=== PATIENT | female | born 1970 | race American Indian/Alaskan Native ===

== ENCOUNTER 2020-01-08 21:07 | Emergency (ER) | payer BC ==
--- NOTE | 2020-01-08 21:40 | Emergency Department Report ---
Blank Doc - Documentation Documentation: 49-year-old female that presents with cough, SOB, and body aches. Taken tylenol prior to ED visit. tachycardia. This initial assessment/diagnostic orders/clinical plan/treatment(s) is/are subject to change based on patient's health status, clinical progression and re-assessment by fellow clinical providers in the ED. Further treatment and workup at subsequent clinical providers discretion. Patient/guardians urged not to elope from the ED as their condition may be serious if not clinically assessed and managed. Initial orders include: 1- Patient sent to [facility] for further evaluation and treatment 2- CXR-R/O PNA w/ possible COVID
--- NOTE | 2020-01-08 22:15 | XRay Report ---
CHEST 2 VIEWS INDICATION / CLINICAL INFORMATION: cough. COMPARISON: None available. FINDINGS: SUPPORT DEVICES: None. HEART / MEDIASTINUM: No significant abnormality. LUNGS / PLEURA: No significant pulmonary or pleural abnormality. No pneumothorax. ADDITIONAL FINDINGS: No significant additional findings. IMPRESSION: 1. No acute findings. Signer Name: Teddy Hernandez MD Signed: 01/08/2020 10:11 PM Workstation Name: [id number]
[2020-01-08] MEDS ORDERED: ACETAMINOPHEN 500 MG TAB PO ONE (23:23)
[2020-01-08] MEDS ORDERED: IBUPROFEN 400 MG TAB PO ONE (23:23)
--- NOTE | 2020-01-08 23:24 | Emergency Department Report ---
ED General Adult HPI - General Chief complaint: Chest Pain Stated complaint: SHORTNESS OF BREATH, CHEST & LEFT ARM PAIN PUI?: Yes Time Seen by Provider: 01/08/20 21:39 Source: patient, RN notes reviewed Mode of arrival: Ambulatory Limitations: No Limitations - History of Present Illness Initial comments: For the entire history and physical examination, I had on complete personal protective equipment. The patient is a 49-year-old female. She is not known to myself previously. She does not have a local primary care doctor. She has a history of mitral valve prolapse. She denies personal and family history of DVT and pulmonary embolism risk factors. Patient presents to the ER on day 3/4 of suspected COVID symptoms. Complains of malaise, fatigue, cough, chest wall pain, congestion, denies headache, neck pain, abdominal pain, vomiting, diarrhea, irritative and obstructive urinary symptoms. Went to an urgent care center recently, who advised patient that she may have COVID, but they were not able to definitively test her. Her chest wall pain is central, does not radiate anywhere, and she denies vomiting, diapho resis. She has mild exertional shortness of breath, since her COVID symptoms started. She believes that she has had positive exposure to COVID individuals. -: Gradual, hour(s) (Chest wall pain present for approximately 10 hours), days(s) (COVID symptoms present for a few days) Location: chest Improves with: rest Worsens with: movement, other (Palpation) - Related Data Previous Rx's Medication Instructions Recorded Last Taken Type Acetaminophen [Non-Aspirin Extra 500 mg PO Q6HR PRN #30 tablet 01/09/20 Unknown Rx Strength] Albuterol Sulfate [Proair 90 mcg IH Q4HR PRN #2 aer.pow.ba 01/09/20 Unknown Rx Respiclick] Ferrous Sulfate [Ferrous Sulfate 324 mg PO TID #90 tablet. 01/09/20 Unknown Rx 324 MG] Metoclopramide [Reglan] 10 mg PO QID PRN #30 tablet 01/09/20 Unknown Rx Allergies Allergy/AdvReac Type Severity Reaction Status Date / Time No Known Allergies Allergy Verified 01/08/20 21:13 ED Review of Systems ROS: Stated complaint: SHORTNESS OF BREATH, CHEST & LEFT ARM PAIN Other details as noted in HPI Constitutional: fever, malaise, weakness Eyes: denies: eye discharge ENT: congestion Respiratory: cough Cardiovascular: chest pain. denies: syncope Gastrointestinal: denies: nausea, vomiting, diarrhea, hematemesis, melena, hematochezia Genitourinary: abnormal menses, other (Patient reports irregular menstruation denies hematemesis and bright red blood per). denies: dysuria Musculoskeletal: myalgia Skin: denies: lesions Neurological: weakness Hematological/Lymphatic: denies: easy bleeding ED Past Medical Hx - Past Medical History Previous Medical History?: Yes Additional medical history: MVP - Surgical History Past Surgical History?: Yes Hx Breast Surgery: Yes (augmentation) - Social History Smoking Status: Never Smoker Substance Use Type: None - Medications Home Medications: Home Medications Medication Instructions Recorded Confirmed Last Taken Type Acetaminophen [Non-Aspirin Extra 500 mg PO Q6HR PRN #30 tablet 01/09/20 Unknown Rx Strength] Albuterol Sulfate [Proair 90 mcg IH Q4HR PRN #2 aer.pow.ba 01/09/20 Unknown Rx Respiclick] Ferrous Sulfate [Ferrous Sulfate 324 mg PO TID #90 tablet.dr 01/09/20 Unknown Rx 324 MG] Metoclopramide [Reglan] 10 mg PO QID PRN #30 tablet 01/09/20 Unknown Rx ED Physical Exam - General Limitations: No Limitations General appearance: alert, in no apparent distress - Head Head exam: Present: atraumatic, normocephalic - Eye Eye exam: Present: normal appearance, EOMI. Absent: nystagmus - ENT ENT exam: Present: normal exam, normal orophraynx, mucous membranes moist, normal external ear exam - Neck Neck exam: Present: normal inspection, full ROM. Absent: tenderness, meningismus - Respiratory Respiratory exam: Present: normal lung sounds bilaterally, chest wall tenderness. Absent: respiratory distress - Cardiovascular Cardiovascular Exam: Present: regular rate, normal rhythm, normal heart sounds. Absent: bradycardia, tachycardia, irregular rhythm, systolic murmur, diastolic murmur, rubs, gallop - GI/Abdominal GI/Abdominal exam: Present: soft, normal bowel sounds. Absent: distended, tenderness, guarding, rebound, rigid, pulsatile mass - Extremities Exam Extremities exam: Present: normal inspection, full ROM, other (2+ pulses noted in the bilateral upper and lower extremities. There is no palpable cord. negative Homans sign. Muscular compartments are soft. The pelvis is stable.). Absent: pedal edema, calf tenderness - Back Exam Back exam: Present: normal inspection, full ROM. Absent: tenderness, CVA tenderness (R), CVA tenderness (L), paraspinal tenderness, vertebral tenderness - Neurological Exam Neurological exam: Present: alert, oriented X3, normal gait, other (No facial droop. Tongue midline. Extraocular movements intact bilaterally. Facial sensation intact to light touch in V1, V2, V3 distribution bilaterally. 5 and a 5 strength in 4 extremities. Sensation intact to light touch in 4 extremities.). Absent: motor sensory deficit - Psychiatric Psychiatric exam: Present: anxious - Skin Skin exam: Present: warm, dry, intact, normal color. Absent: rash ED Course Vital Signs 01/08/20 01/08/20 01/09/20 21:39 23:23 02:11 Temperature 99.6 F 98 F Pulse Rate 99 H 88 Respiratory 18 18 18 Rate Blood Pressure 134/76 Blood Pressure 122/84 [Left] O2 Sat by Pulse 100 100 99 Oximetry - Reevaluation(s) Reevaluation #1: 01/09/20 00:20 Differential diagnosis, including but not limited to: GERD, gastritis, costochondritis, hiatal hernia, myocarditis, coronary artery disease, pneumonia, viral syndrome, suspected COVID-19 Assessment and plan: 49-year-old female who denies DVT and pulmonary embolism risk factors, who is low risk by Wells criteria, who is PERC negative, not currently tachycardic, tachypneic or hypoxic, with reproducible chest wall pain, EKG unchanged x2, troponin negative x2, and probable novel coronavirus. Patient low risk for major adverse cardiac event as per heart score. She can be treated supportively and symptomatically. She can follow-up with an outpatient primary care doctor for her COVID symptoms, follow-up with her primary care doctor or filter press tender for her chest wall pain, patient and were advised appropriately regarding natural history of COVID. She is found to have a macrocytic anemia, she can be started on iron sulfate, and she can follow-up with an outpatient production supervisor or primary physician for this 01/09/20 00:21 Reevaluation #2: 01/09/20 01:43 Troponin negative x2. EKG unchanged x2. Resting comfortably and in no acute distress. Suitable for discharge at this point in time ED Medical Decision Making - Lab Data Result diagrams: 01/08/20 23:29 01/08/20 23:29 Vital Signs 01/08/20 21:39 Temperature 99.6 F Pulse Rate 99 H Respiratory 18 Rate Blood Pressure 134/76 O2 Sat by Pulse 100 Oximetry Lab Results 01/08/20 01/08/20 01/08/20 Range/Units 23:29 23:29 23:29 WBC 3.9 L (4.5-11.0) K/mm3 RBC 4.66 (3.65-5.03) M/mm3 Hgb 9.2 L (10.1-14.3) gm/dl Hct 28.9 L (30.3-42.9) % MCV 62 L (79-97) fl MCH 20 L (28-32) pg MCHC 32 (30-34) % RDW 22.0 H (13.2-15.2) % Plt Count 224 (140-440) K/mm3 Lymph % (Auto) 21.8 (13.4-35.0) % [place] % (Auto) 12.4 H (0.0-7.3) % Eos % (Auto) 0.1 (0.0-4.3) % Baso % (Auto) 0.2 (0.0-1.8) % Lymph # 0.8 L (1.2-5.4) K/mm3 [place] # 0.5 (0.0-0.8) K/mm3 Eos # 0.0 (0.0-0.4) K/mm3 Baso # 0.0 (0.0-0.1) K/mm3 Seg Neutrophils % 65.5 (40.0-70.0) % Seg Neutrophils # 2.5 (1.8-7.7) K/mm3 PT 15.4 H (12.2-14.9) Sec. INR 1.25 H (0.87-1.13) Sodium 138 (137-145) mmol/L Potassium 3.7 (3.6-5.0) mmol/L Chloride 100.3 (98-107) mmol/L Carbon Dioxide 23 (22-30) mmol/L Anion Gap 18 mmol/L BUN 19 H (7-17) mg/dL Creatinine 0.6 L (0.7-1.2) mg/dL Estimated GFR > 60 ml/min BUN/Creatinine Ratio 32 % Glucose 104 H (65-100) mg/dL Calcium 9.0 (8.4-10.2) mg/dL Magnesium 2.00 (1.7-2.3) mg/dL Total Creatine Kinase 57 (30-135) units/L Troponin T 0.010 (0.00-0.029) ng/mL HCG, Quant (0-4) mIU/mL 01/08/20 Range/Units 23:29 WBC (4.5-11.0) K/mm3 RBC (3.65-5.03) M/mm3 Hgb (10.1-14.3) gm/dl Hct (30.3-42.9) % MCV (79-97) fl MCH (28-32) pg MCHC (30-34) % RDW (13.2-15.2) % Plt Count (140-440) K/mm3 Lymph % (Auto) (13.4-35.0) % [place] % (Auto) (0.0-7.3) % Eos % (Auto) (0.0-4.3) % Baso % (Auto) (0.0-1.8) % Lymph # (1.2-5.4) K/mm3 [place] # (0.0-0.8) K/mm3 Eos # (0.0-0.4) K/mm3 Baso # (0.0-0.1) K/mm3 Seg Neutrophils % (40.0-70.0) % Seg Neutrophils # (1.8-7.7) K/mm3 PT (12.2-14.9) Sec. INR (0.87-1.13) Sodium (137-145) mmol/L Potassium (3.6-5.0) mmol/L Chloride (98-107) mmol/L Carbon Dioxide (22-30) mmol/L Anion Gap mmol/L BUN (7-17) mg/dL Creatinine (0.7-1.2) mg/dL Estimated GFR ml/min BUN/Creatinine Ratio % Glucose (65-100) mg/dL Calcium (8.4-10.2) mg/dL Magnesium (1.7-2.3) mg/dL Total Creatine Kinase (30-135) units/L Troponin T (0.00-0.029) ng/mL HCG, Quant 0.500 (0-4) mIU/mL - EKG Data 01/09/20 00:17 No prior EKGs available for comparison. EKG #1 shows a sinus rhythm, 94 bpm, normal axis, normal intervals, borderline poor R wave progression, and atrial enlargement. The EKG is not consistent with a STEMI. EKG #2 is unchanged from prior. - Radiology Data Radiology results: report reviewed, image reviewed Print Report Referring Physician: ANIBAL RAE Patient Name: IJEOMA BOLANOS Date of : 1970 Sex: Female Report Date: 2020-01-08 Report Status: Finalized Findings [facility] [address] [place] [address] XRay Report Signed Patient: IJEOMA BOLANOS R#: [id number] : 1970 Acct:[id number] Age/Sex: 49 / F ADM Date: 01/08/20 Loc: ED Attending Dr: Ordering Physician: ANIBAL RAE NP Date of Service: 01/08/20 Procedure(s): XR chest routine 2V Accession Number(s): [id number] cc: ANIBAL VILLASEÑOR NP Fluoro Time In Minutes: CHEST 2 VIEWS INDICATION / CLINICAL INFORMATION: cough. COMPARISON: None available. FINDINGS: SUPPORT DEVICES: None. HEART / MEDIASTINUM: No significant abnormality. LUNGS / PLEURA: No significant pulmonary or pleural abnormality. No pneumothorax. ADDITIONAL FINDINGS: No significant additional findings. IMPRESSION: 1. No acute findings. Signer Name: Teddy Hernandez MD Signed: 01/08/2020 10:11 PM Workstation Name: [id number] Transcribed By: BC Dictated By: Teddy Hernandez MD Electronically Authenticated By: Teddy Hernandez MD Signed Date/Time: 01/08/202210 DD/ 10 TD/TT: Critical care attestation.: If time is entered above; I have spent that time in minutes in the direct care of this critically ill patient, excluding procedure time. ED Disposition Clinical Impression: Chest wall pain, Microcytic anemia, Suspected COVID-19 virus infection Disposition: DC-01 TO HOME OR SELFCARE Is pt being admited?: No Does the pt Need Aspirin: No Condition: Stable Instructions: COVID-19, Costochondritis (ED), Iron Deficiency Anemia (ED) Additional Instructions: As we discussed, the patient most likely has novel coronavirus/COVID. the symptoms of COVID will typically persist 10 to 14 days. There is no cure at this time for COVID. Please make certain to self isolate and self quarantine, follow-up with an outpatient primary care doctor within the next 3 to 5 days, wash hands with soap and water frequently, thoroughly and often, patient may take the prescribed medications as needed and directed. Advance diet and drink plenty of fluids as tolerated. Avoid interactions with the very elderly, very young, and those with chronic medical conditions. Return to the emergency room right away with new pain, worsening pain, migration of pain, projectile vomiting, change in mental status, confusion, inability to tolerate liquid feeds, new, worsened or different symptoms not present on the initial emergency room evaluation. Take the iron sulfate supplementation as directed. This may cause abdominal pain and cramping and constipation. Drink 4 to 6 cups of water per day, and eat plenty of fiber, fruits, vegetables and lean protein. Follow-up with a primary care doctor or production supervisor for irregular menstruation and mild anemia within the next month. Follow-up with a filter press tender for complaint of chest wall pain within the next 3 days. Prescriptions: Ferrous Sulfate [Ferrous Sulfate 324 MG] 324 mg PO TID #90 tablet.dr Acetaminophen [Non-Aspirin Extra Strength] 500 mg PO Q6HR PRN #30 tablet PRN Reason: Pain , Severe (7-10) Albuterol Sulfate [Proair Respiclick] 90 mcg IH Q4HR PRN #2 aer.pow.ba PRN Reason: Wheezing Metoclopramide [Reglan] 10 mg PO QID PRN #30 tablet PRN Reason: Nausea Referrals: AMMY NO MD [Staff Physician] - 3-5 Days PABLO MCKINNEY MD [Staff Physician] - 7-10 days MORENO DACOSTA MD [Staff Physician] - 7-10 days Forms: Work/School Release Form(ED)
[2020-01-08 23:47] LABS: Basophils % (Auto) 0.2 % (0.0-1.8); Eosinophils % (Auto) 0.1 % (0.0-4.3); Hematocrit 28.9 % (30.3-42.9); Hemoglobin 9.2 gm/dl (10.1-14.3); Lymphocytes # (Auto) 0.8 K/mm3 (1.2-5.4); Lymphocytes % (Auto) 21.8 % (13.4-35.0); Mean Corpuscular HGB Conc 32 % (30-34); Monocytes # (Auto) 0.5 K/mm3 (0.0-0.8); Monocytes % (Auto) 12.4 % (0.0-7.3); Red Blood Count 4.66 M/mm3 (3.65-5.03)
[2020-01-08 23:56] LABS: Mean Corpuscular Volume 62 fl (79-97)
[2020-01-08 23:57] LABS: Platelet Count 224 K/mm3 (140-440)
[2020-01-08 23:59] LABS: INR 1.25 (0.87-1.13)
[2020-01-09 00:14] LABS: Blood Urea Nitrogen 19 mg/dL (7-17)
[2020-01-09 00:15] LABS: BUN/Creatinine Ratio 32; Hemolysis Index 1
[2020-01-09 02:12] VITALS: BP 122/84
== END 2020-01-09 02:13 | disposition home or self-care (01) ==
LOC: ED 21:07
DX: D50.9 Iron deficiency anemia, unspecified (principal); Z20.828 Contact with and (suspected) exposure to other viral communicable diseases; R07.89 Other chest pain
CPT/HCPCS: 36415; 71046; 80048; 82550; 83735; 84484; 84702; 85025; 85610; 93005

== ENCOUNTER 2020-08-23 01:53 | Emergency (ER) | payer SELFPAY ==
[2020-08-23] MEDS ORDERED: ASPIRIN 325 MG TAB PO ONE (02:13)
--- NOTE | 2020-08-23 02:18 | Event Note ---
ED Screening Note Date of service: 08/23/20 Time: 02:00 ED Screening Note: Patient is a 49-year-old -Welsh female with a history of MVP who presents to the ED with complaint of acute onset persistent palpitations for over 12 hours intermittently with headache and chest tightness. Patient states that the palpitations and the left-sided chest wall tightness has been persistent and she decided to come to the ED for evaluation. Patient also states that she takes a lot of coffee and caffeinated drinks. Rectal. Patient denies dizziness, syncope, change in vision, headache, shortness of breath, numbness and tingling or weakness of upper or lower extremities bilaterally, neck pain, abdominal pain, nausea, vomiting, traumatic injury or heavy lifting. This initial assessment/diagnostic orders/clinical plan/treatment(s) is/are subject to change based on patients health status, clinical progression and re- assessment by fellow clinical providers in the ED. Further treatment and workup at subsequent clinical providers discretion. Patient/guardian urged not to elope from the ED as their condition may be serious if not clinically assessed and managed. Initial orders include: EKG, CXR, CBC, CMP, troponin, aspirin
--- NOTE | 2020-08-23 02:39 | Emergency Department Report ---
ED Chest Pain HPI - General Chief Complaint: Chest Pain Stated Complaint: CHEST PAIN/RAPID HEARTBEAT/HEADACHE PUI?: No Time Seen by Provider: 08/23/20 02:28 Source: patient Mode of arrival: Ambulatory Limitations: No Limitations - History of Present Illness Initial Comments: Patient is a 49-year-old female that presents emergency room with complaints of left-sided chest pain. Patient states her chest pain started yesterday at 10 AM. Patient states that the pain is a 5 out of 10. Patient states she is also having palpitations. Patient states that her pain is better with rest and worse with exertion. Patient states she is also feeling shaky. Patient states the palpitations were so severe she was not able to fall asleep. Patient denies shortness of breath. Patient that she has a history of mitral valve prolapse. Patient denies any other past medical history except for anemia. Patient states she is taking a multivitamin with iron in it. Patient denies recent travel. Patient denies recent international travel. Patient denies exposure to the novel coronavirus. Patient denies sick contacts. Patient denies fever and chills. Patient denies cough. Patient denies diarrhea. Patient denies coming in contact with anybody with symptoms of the novel coronavirus. MD Complaint: chest pain -: Sudden Onset: during rest Pain Location: left chest Pain Radiation: none Severity scale (0 -10): 5 Quality: sharp Consistency: now resolved Improves With: rest Worsens With: exertion re: denies: nausea, vomting, diaphoresis, dyspnea, sense of impending doom Other Symptoms: palpitations. denies: cough, fever, syncope, rash, acid taste in mouth, leg swelling, burping Treatments Prior to Arrival: none Aspirin use within the Past 7 Days: (0) No - Related Data On Oral Contraceptives: No Previous Rx's Medication Instructions Recorded Last Taken Type Acetaminophen [Non-Aspirin Extra 500 mg PO Q6HR PRN #30 tablet 01/09/20 Unknown Rx Strength] Albuterol Sulfate [Proair 90 mcg IH Q4HR PRN #2 aer.pow.ba 01/09/20 Unknown Rx Respiclick] Ferrous Sulfate [Ferrous Sulfate 324 mg PO TID #90 tablet. 01/09/20 Unknown Rx 324 MG] Metoclopramide [Reglan] 10 mg PO QID PRN #30 tablet 01/09/20 Unknown Rx Allergies Allergy/AdvReac Type Severity Reaction Status Date / Time No Known Allergies Allergy Verified 01/08/20 21:13 Heart Score - HEART Score History: Slightly suspicious EKG: Normal Age: 45-65 Risk factors: No known risk factors Troponin: < normal limit HEART Score: 1 ED Review of Systems ROS: Stated complaint: CHEST PAIN/RAPID HEARTBEAT/HEADACHE Other details as noted in HPI Constitutional: denies: chills, fever Eyes: denies: eye pain, eye discharge, vision change ENT: denies: ear pain, throat pain Respiratory: denies: cough, shortness of breath, wheezing Cardiovascular: chest pain, palpitations Endocrine: no symptoms reported Gastrointestinal: denies: abdominal pain, nausea, diarrhea Genitourinary: denies: urgency, dysuria, discharge Musculoskeletal: denies: back pain, joint swelling, arthralgia Skin: denies: rash, lesions Neurological: denies: headache, weakness, paresthesias Psychiatric: denies: anxiety, depression Hematological/Lymphatic: denies: easy bleeding, easy bruising ED Past Medical Hx - Past Medical History Previous Medical History?: Yes Additional medical history: MVP. Anemia - Surgical History Past Surgical History?: Yes Hx Breast Surgery: Yes (augmentation) - Family History Family history: no significant - Social History Smoking Status: Never Smoker Substance Use Type: None - Medications Home Medications: Home Medications Medication Instructions Recorded Confirmed Last Taken Type Acetaminophen [Non-Aspirin Extra 500 mg PO Q6HR PRN #30 tablet 01/09/20 Unknown Rx Strength] Albuterol Sulfate [Proair 90 mcg IH Q4HR PRN #2 aer.pow.ba 01/09/20 Unknown Rx Respiclick] Ferrous Sulfate [Ferrous Sulfate 324 mg PO TID #90 tablet.dr 01/09/20 Unknown Rx 324 MG] Metoclopramide [Reglan] 10 mg PO QID PRN #30 tablet 01/09/20 Unknown Rx ED Physical Exam - General Limitations: No Limitations General appearance: alert, in no apparent distress - Head Head exam: Present: atraumatic, normocephalic - Eye Eye exam: Present: normal appearance - ENT ENT exam: Present: mucous membranes moist - Neck Neck exam: Present: normal inspection - Respiratory Respiratory exam: Present: normal lung sounds bilaterally. Absent: respiratory distress - Cardiovascular Cardiovascular Exam: Present: regular rate, normal rhythm. Absent: systolic murmur, diastolic murmur, rubs, gallop - GI/Abdominal GI/Abdominal exam: Present: soft, normal bowel sounds - Extremities Exam Extremities exam: Present: normal inspection - Back Exam Back exam: Present: normal inspection - Neurological Exam Neurological exam: Present: alert, oriented X3 - Psychiatric Psychiatric exam: Present: normal affect, normal mood - Skin Skin exam: Present: warm, dry, intact, normal color. Absent: rash ED Course Vital Signs 08/23/20 08/23/20 08/23/20 02:05 02:42 02:46 Temperature 98.4 F Pulse Rate 94 H 76 88 Respiratory 16 26 H 18 Rate Blood Pressure 159/57 Blood Pressure 148/98 [Left] O2 Sat by Pulse 100 99 Oximetry 08/23/20 03:00 Temperature Pulse Rate 78 Respiratory 18 Rate Blood Pressure 141/81 Blood Pressure [Left] O2 Sat by Pulse 99 Oximetry - Reevaluation(s) Reevaluation #1: I discussed all results and clinical findings with patient. I discussed plan of care with patient. Patient agrees with plan of care. Patient is stable for discharge. Patient will be discharged home. Patient given discharge instructions. Patient voiced understanding of discharge instructions. 08/23/20 03:46 PERFECTO score - Perfecto Score Age > 65: (0) No Aspirin use within the Past 7 Days: (0) No 3 or more CAD Risk Factors: (0) No 2 or more Angina events in past 24 hrs: (0) No Known CAD with more than 50% Stenosis: (0) No Elevated Cardiac Markers: (0) No ST Deviation Greater than 0.5mm: (0) No PERFECTO Score: 0 ED Medical Decision Making - Lab Data Result diagrams: 08/23/20 02:48 08/23/20 02:48 - EKG Data -: EKG Interpreted by Me EKG shows normal: sinus rhythm, axis, intervals, QRS complexes, ST-T waves Rate: normal - Radiology Data Radiology results: report reviewed, image reviewed interpreted by me: Chest x-ray: No pneumonia, no pneumothorax, no foreign body, no osseous findings, no acute findings CHEST 1 VIEW 08/23/2020 2:48 AM INDICATION / CLINICAL INFORMATION: Palpitations. COMPARISON: 01/08/20 FINDINGS: SUPPORT DEVICES: None. HEART / MEDIASTINUM: No significant abnormality. LUNGS / PLEURA: No significant pulmonary or pleural abnormality. No pneum othorax. ADDITIONAL FINDINGS: No significant additional findings. IMPRESSION: 1. No acute findings. No change. - Medical Decision Making Patient is a 49-year-old female who presents emergency room with complaints of chest pain for approximately 15 to 16 hours. Patient had a cardiac work-up. Patient had a chest x-ray which was negative for acute finding. Patient EKG which showed a normal sinus rhythm. Patient's EKG did not show any ST changes. Patient's labs were done. Patient's labs were essentially unremarkable. Patient's troponin was negative. Patient can be worked up as an outpatient. Patient is stable for discharge. Patient's information will be faxed over to her local broomcorn thresher for further evaluation and risk stratification. Patient given discharge instructions. - Differential Diagnosis Anxiety, palpitations, chest pain, chest wall pain, Critical care attestation.: If time is entered above; I have spent that time in minutes in the direct care of this critically ill patient, excluding procedure time. ED Disposition Clinical Impression: Heart palpitations Chest pain Qualifiers: Chest pain type: unspecified Qualified Code(s): R07.9 - Chest pain, unspecified Disposition: DC-01 TO HOME OR SELFCARE Is pt being admited?: No Does the pt Need Aspirin: No Condition: Stable Instructions: Chest Wall Pain, [id number], Nonspecific Chest Pain, Adult, [id number], Palpitations, [id number], Palpitations, Chest Pain (ED) Additional Instructions: Patient to follow-up with primary care in 2 to 3 days. Patient to follow-up with cardiology in 2 to 3 days. Patient to rest. Patient to increase water. Patient to avoid strenuous exercise or heavy lifting until cleared by cardiology and primary care. Patient to take Tylenol or ibuprofen as needed for pain. Patient to return to the ER if condition worsens, changes or new symptoms arise. Patient to take 81 mg aspirins daily until seen by the broomcorn thresher. Referrals: OTIS DOLAN MD [Primary Care Provider] - 2-3 Days ISIDORO CLEMENT MD [Staff Physician] - 2-3 Days PABLO MCKINNEY MD [Staff Physician] - 2-3 Days STACIE OWEN MD [Staff Physician] - 2-3 Days Time of Disposition: 03:46
--- NOTE | 2020-08-23 03:08 | XRay Report ---
CHEST 1 VIEW 08/23/2020 2:48 AM INDICATION / CLINICAL INFORMATION: Palpitations. COMPARISON: 01/08/20 FINDINGS: SUPPORT DEVICES: None. HEART / MEDIASTINUM: No significant abnormality. LUNGS / PLEURA: No significant pulmonary or pleural abnormality. No pneumothorax. ADDITIONAL FINDINGS: No significant additional findings. IMPRESSION: 1. No acute findings. No change. Signer Name: Alicja Marie MD Signed: 08/23/2020 3:04 AM Workstation Name: [id number]
[2020-08-23 03:17] LABS: Basophils % (Auto) 0.5 % (0.0-1.8); Eosinophils % (Auto) 0.5 % (0.0-4.3); Hematocrit 33.2 % (30.3-42.9); Hemoglobin 10.3 gm/dl (10.1-14.3); Lymphocytes # (Auto) 1.4 K/mm3 (1.2-5.4); Mean Corpuscular HGB Conc 31 % (30-34); Monocytes # (Auto) 0.4 K/mm3 (0.0-0.8); Platelet Count 250 K/mm3 (140-440); Red Blood Count 4.88 M/mm3 (3.65-5.03); Red Cell Distribution Width 18.7 % (13.2-15.2)
[2020-08-23 03:24] LABS: Alanine Aminotransferase 12 units/L (7-56); Albumin 4.5 g/dL (3.9-5); Blood Urea Nitrogen 17 mg/dL (7-17); Calcium 9.3 mg/dL (8.4-10.2); Hemolysis Index 18
[2020-08-23 03:25] LABS: BUN/Creatinine Ratio 24
[2020-08-23 03:44] LABS: Mean Corpuscular Volume 68 fl (79-97)
[2020-08-23 04:19] VITALS: BP 141/81
== END 2020-08-23 04:16 | disposition home or self-care (01) ==
LOC: ED 01:53
DX: R00.2 Palpitations (principal); R07.89 Other chest pain; Z79.899 Other long term (current) drug therapy
CPT/HCPCS: 36415; 71045; 80053; 84484; 85025; 93005